=== PATIENT | female | born 1980 | race Caucasian/White ===

== ENCOUNTER 2016-08-15 10:17 | Outpatient (CLI) ==
--- NOTE | 2016-08-15 10:59 | US ---
Exam: Limited christy-scale and color Doppler ultrasonographic evaluation of the right posterior thigh. Comparison: None available. Reason for exam: Palpable soft tissue nodule in the right mid posterior thigh for 3-4 years. FINDINGS: There is a complex appearing 2.69 x 1.0 x 1.66 cm isoechoic, parallel, mildly heterogeneo us well-circumscribed nodular density in the subcutaneous soft tissues without significant interval vascularity. There is no definite communication with the underlying musculature or overlying dermis . Impression: Complex appearing 2.69 cm well circumscribed, nodular density in the subcutaneous soft tissues of th e right mid posterior thigh. Imaging findings are consistent with a lipoma. If clinical concern ex ists, follow-up ultrasound imaging may be performed in 6-month to document stability.
== END 2016-08-15 10:18 | disposition home or self-care (01) ==
LOC: RAD 10:17
PROVIDERS: ATTEND Nurse Practitioner Family
DX: D17.23 Benign lipomatous neoplasm of skin and subcutaneous tissue of right leg (principal)
CPT/HCPCS: 76882

== ENCOUNTER 2016-08-17 12:03 | Outpatient (CLI) ==
--- NOTE | 2016-08-17 12:29 | DI ---
Exam: Four x-rays of the right femur. Comparison: Ultrasound of the right mid thigh performed 08/15/2016. Reason for exam: Right thigh mass FINDINGS: Circumscribed soft tissue density is seen in the medial right thigh. There is not appear to be any cortical involvement. No acute fracture or dislocation. The cortex is intact. The join t spaces are well maintained. No abnormal soft tissue calcifications. Impression: 1. No acute fracture or malalignment in the right femur. No evidence of osseous disease. 2. Soft tissue density in the right posterior mid thigh is similar in appearance when compared to p rior ultrasound evaluation.
== END 2016-08-17 12:04 | disposition home or self-care (01) ==
LOC: RAD 12:03
PROVIDERS: ATTEND Nurse Practitioner Family
DX: R22.41 Localized swelling, mass and lump, right lower limb (principal)

== ENCOUNTER 2016-10-02 10:04 | Outpatient (CLI) ==
--- NOTE | 2016-10-02 11:12 | DI ---
Exam: Three x-rays of the left ankle. Comparison: None available. Reason for exam: Pain. FINDINGS: No acute fracture or or dislocation. The talar dome is intact. There is no widening of the medial lateral clear spaces. No unexplained calcific soft tissue densities or radiopaque retain ed foreign bodies. Impression: No acute fracture or dislocation in the left ankle.
== END 2016-10-02 10:05 | disposition home or self-care (01) ==
LOC: RAD 10:04
PROVIDERS: ATTEND Nurse Practitioner Family
DX: M25.572 Pain in left ankle and joints of left foot (principal)

== ENCOUNTER 2016-12-06 11:16 | Emergency (ER) ==
[2016-12-06 11:37] VITALS: BP 148/87; TEMP 98.1; BMI 24.5
[2016-12-06] MEDS ORDERED: NEXT CHOICE ONE DOSE PO STA (12:39)
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
[2016-12-06 13:15] LABS: BILIRUBIN,URINE Negative (NEGATIVE); KETONES,URINE Negative (NEGATIVE); LEUKOCYTE ESTERASE ,URINE Negative (NEGATIVE); NITRITE,URINE Negative (NEGATIVE); PH,URINE 8.5 (5-9); PROTEIN,URINE Negative (NEGATIVE); URINE PREGNANCY INTERNAL QC INTERNAL QC VALID; URINE, BLOOD Negative (NEGATIVE)
[2016-12-06 13:24] LABS: ADD URINE MICROSCOPIC NO; COCAIN SCREEN,URINE NEGATIVE (NEGATIVE)
[2016-12-08 09:50] LABS: RAPID PLASMA REAGIN Non Reactive (Non Reactive)
[2016-12-08 09:59] LABS: HIV ANTIBODIES QUALITATIVE NON REACTIVE (Nonreactive)
== END 2016-12-06 13:20 | disposition home or self-care (01) ==
LOC: ED 11:16
DX: T76.21XA Adult sexual abuse, suspected, initial encounter (principal); F17.210 Nicotine dependence, cigarettes, uncomplicated
CPT/HCPCS: 36415; 80074; 80306; 81001; 81025; 86592; 86701; 87800; 99285

== ENCOUNTER 2018-01-24 12:05 | Outpatient (CLI) ==
--- NOTE | 2018-01-24 13:00 | DI ---
EXAM: Seven views of the lumbar spine. History: Lower back pain. Findings: No acute fracture or subluxation of the lumbar spine. Disc space heights are preserved. No abnormal calcifications or radiopaque foreign bodies. Impression: Unremarkable exam
== END 2018-01-24 12:06 | disposition home or self-care (01) ==
LOC: RAD 12:05
PROVIDERS: ATTEND Nurse Practitioner Family
DX: Z00.00 Encounter for general adult medical examination without abnormal findings (principal); F41.9 Anxiety disorder, unspecified; M54.5 Low back pain; Z87.828 Personal history of other (healed) physical injury and trauma
CPT/HCPCS: 36415; 80053; 80061; 84443; 85025